=== PATIENT | male | born 1995 | race Caucasian/White ===

== ENCOUNTER 2017-11-02 11:43 | Emergency (ER) | payer MEDICAID ==
[~2017-11-02] VITALS: Ht 175.3 cm; Wt 89.0 kg
[2017-11-02 11:51] VITALS: BP 134/68
[2017-11-02] MEDS ORDERED: LORAZEPAM 1MG TABLET PO ONE (12:30)
== END 2017-11-02 13:40 | disposition home or self-care (01) ==
LOC: ER 11:43
DX: F41.0 Panic disorder [episodic paroxysmal anxiety] (principal); F32.9 Major depressive disorder, single episode, unspecified; F17.200 Nicotine dependence, unspecified, uncomplicated
CPT/HCPCS: 99284